=== PATIENT | male | born 1985 | race Two or more races ===

== ENCOUNTER 2017-10-05 19:10 | Emergency (ER) | payer BC ==
[~2017-10-05] VITALS: Ht 165.1 cm; Wt 72.6 kg
[2017-10-05 19:19] VITALS: Ht 165.1 cm; Wt 72.6 kg
[2017-10-05 21:22] VITALS: BP 123/76
== END 2017-10-05 21:22 | disposition home or self-care (01) ==
LOC: ED 19:10
DX: S43.402A Unspecified sprain of left shoulder joint, initial encounter (principal); S23.3XXA Sprain of ligaments of thoracic spine, initial encounter; V43.52XA Car driver injured in collision with other type car in traffic accident, initial encounter; Y93.I9 Activity, other involving external motion; Y92.488 Other paved roadways as the place of occurrence of the external cause; Y99.8 Other external cause status
CPT/HCPCS: 72072